=== PATIENT | female | born 1930 | race Caucasian/White ===

== ENCOUNTER 2019-09-20 14:06 | Emergency (ER) | payer OTHER ==
[~2019-09-20] VITALS: Ht 160 cm; Wt 61.2 kg
[~2019-09-20 14:06] MED LIST: ATENOLOL; MEV20 PO; SYN75 PO; VITD; [UNRECOGNIZED DRUG - OTHER]; [UNRECOGNIZED DRUG - OTHER]; [UNRECOGNIZED DRUG - OTHER]
[2019-09-20 14:14] VITALS: Ht 160 cm; Wt 61.2 kg
[2019-09-20 18:15] VITALS: BP 149/59
== END 2019-09-20 18:15 | disposition short-term general hospital (02) ==
LOC: ED 14:06
DX: S12.100A Unspecified displaced fracture of second cervical vertebra, initial encounter for closed fracture (principal); I10 Essential (primary) hypertension; E78.00 Pure hypercholesterolemia, unspecified; E03.9 Hypothyroidism, unspecified; Z88.0 Allergy status to penicillin; Z88.2 Allergy status to sulfonamides; V49.49XA Driver injured in collision with other motor vehicles in traffic accident, initial encounter; Y93.I9 Activity, other involving external motion; Y92.413 State road as the place of occurrence of the external cause; Y99.8 Other external cause status
CPT/HCPCS: J2270; J2405; J3010; J7030; Q0162